=== PATIENT | female | born 1985 | race Two or more races ===

== ENCOUNTER 2021-04-14 10:45 | Inpatient (IN) | payer OTHER ==
[~2021-04-14] VITALS: Ht 154.9 cm; Wt 104.3 kg
[2021-04-14] MEDS ORDERED: TENORMIN25 MG PO (13:59)
[2021-04-15] MEDS ORDERED: AZELASTINE137 MCG/0. (09:53)
== END 2021-04-17 13:42 | disposition home or self-care (01) | DRG 743 ==
LOC: OB/GYN 04-15 07:43 → O/R 04-15 07:43 → SURH 04-15 10:45 → OB/GYN 04-15 13:15
PROVIDERS: ADMIT Specialist; ATTEND Specialist
PROC: 0UT74ZZ Resection of Bilateral Fallopian Tubes, Percutaneous Endoscopic Approach (ICD-10-PCS; 2021-04-15)
PROC: 0UT94ZZ Resection of Uterus, Percutaneous Endoscopic Approach (ICD-10-PCS; principal; 2021-04-15 10:30)
DX: N85.02 Endometrial intraepithelial neoplasia [EIN] (principal); N72 Inflammatory disease of cervix uteri; I34.1 Nonrheumatic mitral (valve) prolapse; N83.8 Other noninflammatory disorders of ovary, fallopian tube and broad ligament

== ENCOUNTER 2021-04-24 22:32 | Inpatient (IN) | payer OTHER ==
[~2021-04-24] VITALS: Ht 154.9 cm; Wt 101.6 kg
[~2021-04-24 22:32] MED LIST: AZELASTINE137 MCG/0.; TENORMIN25 MG PO
--- NOTE | 2021-04-24 22:46 | NUR ---
PTE ALERTA Y ORIENTADO POR JUNG ESFERAS CON BUEN PATRON RESPIRATORIO. REFIERE QUE TIENE VAGINAL BLEEDING DESDE HOY, CON COAGULOS Y MUY ABUNDANTE. REFIERE QUE NO ESTA EMBARAZADA.
--- NOTE | 2021-04-25 00:10 | NUR ---
PTE EVELAUDA POR ; SE ORIENTA SOBRE ORDENES DE [place] REFIERE COMPRENDER. SE EXTRAEN MUESTRAS DE LABORATORIO Y SE CANALIZA VENA ABJO MEDIDAS ASEPTICAS. SE ADMINISTRAN LIQUIDOS INTRAVENOSOS, BAJO MEDIDAS ASEPTICAS. SE NOTIFICA A RADIOLOGIA PARA CT.
--- NOTE | 2021-04-25 01:30 | NUR ---
0015 SE CONTACTA A [facility] PARA CONOCER SI PTE POSEE HX, REFIERE PTE POSEE HX. 0100 SE COLECTAN TUBOS PILOTOS, BAJO MEDIDAS ASEPTICAS PARA REQUISICION DE PRODUCTOS SANGUINEOS MALACHI ORDEN MEDICA. 0120 SE CONTACTA A [facility] PARA REQUISAR 2 UNIDADES DE PRBC'S FRACCIONADAS EN HOLD A . SE NOTIFICA QUE TUBOS SE ENCUENTRAN EN LABORATORIO [facility].
== END 2021-04-28 12:44 | disposition home or self-care (01) | DRG 921 ==
LOC: ER 22:32 → OB/GYN 04-25 09:39 → SEC-K 04-25 10:25 → OB/GYN 04-25 10:26
PROVIDERS: ADMIT Obstetrics & Gynecology; ATTEND Obstetrics & Gynecology
DX: N99.821 Postprocedural hemorrhage of a genitourinary system organ or structure following other procedure (principal); N85.02 Endometrial intraepithelial neoplasia [EIN]; I10 Essential (primary) hypertension; Z90.710 Acquired absence of both cervix and uterus; Z20.822 Contact with and (suspected) exposure to COVID-19